=== PATIENT | female | born 1930 | race Caucasian/White ===

== ENCOUNTER → 2016-11-08 | Outpatient (CLI) | payer MEDICARE, OTHER ==
--- NOTE | 2016-11-11 09:33 | RAD ---
EXAM DESCRIPTION: Pelvis CLINICAL HISTORY: 86 years Female, LEFT HIP PAIN COMPARISON: October 28, 2013 FINDINGS: The bony pelvis is intact without fracture or deformity or widening of the SI joints or symphysis pubis. Modest hypertrophic changes on a bony basis overlie the left greater trochanter. No fracture or dislocation is seen. IMPRESSION: Nonspecific pelvis one view Electronically signed by: Umesh Worthington MD 11/11/2016 9:32 AM CDT
--- NOTE | 2016-11-11 09:34 | RAD ---
EXAM DESCRIPTION: Hip,Left 2 Views CLINICAL HISTORY: LEFT HIP PAIN COMPARISON: None Available. TECHNIQUE: AP/frog leg lateral FINDINGS: Two views of the left hip and proximal shaft demonstrate hypertrophic changes on a bony basis overlying the greater trochanter without fracture or deformity. Old injury is suspected. No dislocation or significant joint space narrowing. IMPRESSION: Atrophic bony changes overlying the greater trochanter without acute abnormality Electronically signed by: Umesh Worthington MD 11/11/2016 9:34 AM CDT
== END ==
LOC: RAD 08:55
PROVIDERS: ATTEND Orthopaedic Surgery
DX: M25.552 Pain in left hip (principal)